=== PATIENT | male | born 1990 | race Caucasian/White ===

== ENCOUNTER 2022-04-12 06:26 | Emergency (ER) | payer BC, SELFPAY ==
[2022-04-12 06:28] VITALS: BP 128/90; PULSE 75; RESP 18; TEMP 36.6; O2SAT 98; BMI 28.3
--- NOTE | 2022-04-12 06:50 | RAD_ITS ---
STUDY: X-RAY - LUMBAR SPINE REASON FOR EXAM: Male, 32 years old. Pain TECHNIQUE: 5 view(s) of the lumbar spine were obtained. COMPARISON: None FINDINGS: Normal lumbar lordosis. There is no substantial scoliosis. There is a normal alignment of the vertebrae. Normal vertebral bodies and endplates. Normal disc space heights. There is no demonstrated fracture. The soft tissue structures are unremarkable. RAD/L/S Spine Min 4 Views IMPRESSION: Normal x-ray examination of the lumbar spine. Electronically Signed: Alfredito Todd MD at 8:46 EST ,
[2022-04-12] MEDS: predniSONE 20 MG Tablet 40 MG PO (06:57)
[2022-04-12] MEDS: diazePAM 5 MG Tablet PO (06:58)
[2022-04-12] MEDS: oxyCODONE 5 MG Tablet 10 MG PO (06:58)
--- NOTE | 2022-04-12 07:26 | EX.ED.DYSGE1 ---
HPI History of Present Illness Chief Complaint: Back Narrative Narrative: Patient is a 32-year-old male with no reported past medical history. He states that he developed back pain on Friday. He states he does lift heavy objects at work and he did so on Friday but this is not out of the ordinary and he denies pain occurring suddenly with his lifting motion. He states a few hours later however he noticed some pain in the low back slightly greater on the right and as time passed he had increased pain with difficulty moving. He states trying to sit up or lift his leg causes increased pain. He denies any hematuria or dysuria. He denies any loss of bowel or bladder control or IV drug use. He states has been trying [id number] medications with no symptom improvement and secondary to this comes in for evaluation [facility] Medical History no medical history no medical history Home Medications diazepam 5 mg tablet (Valium) 5 mg PO TID PRN muscle spasm 5 days #15 tabs 04/12/22 [Rx Last Taken Unknown] oxycodone-acetaminophen 5 mg-325 mg tablet (Endocet) 1 tab PO Q6H PRN pain 3 days #12 tabs 04/12/22 [Rx Last Taken Unknown] prednisone 20 mg tablet 40 mg PO DAILY 5 days #10 tabs 04/12/22 [Rx Last Taken Unknown] Allergy/AdvReac Type Severity Reaction Status Date / Time No Known Allergies Allergy Verified 04/12/22 06:32 Social History Smoking Status: Light Smoker (<10/day) [facility] ED Constitutional Constitutional ED: Denies chills or fever(s) ENT ENT ED: Denies sore throat Cardiovascular Cardiovascular: Denies chest pain Respiratory/Chest Respiratory/Chest: Denies cough or dyspnea Gastrointestinal Gastrointestinal: Denies abdominal pain, diarrhea, nausea or vomiting Genitourinary Genitourinary ED: Denies dysuria or hematuria Musculoskeletal Musculoskeletal: Reports back pain Integumentary Denies rash Neurologic Neurologic: Denies headache(s) or paresthesias Hematologic/Lymphatic Hematologic/Lymphatic: Denies easy bleeding or easy bruising EXAM Physical Exam Const Vital Signs: 04/12/22 06:28 Temperature 97.9 F Temperature Source Temporal Pulse Rate 75 Respiratory Rate 18 Blood Pressure 128/90 H Blood Pressure Mean 102 Pulse Ox 98 Oxygen Delivery Method Room Air Positive well nourished and well developed General Appearance ED: well developed Eyes PERRL and EOMs intact bilaterally Neck supple Resp normal respiratory effort and clear to auscultation bilaterally Cardio regular rate and regular rhythm GI normal to inspection, nondistended, normoactive bowel sounds, non-tender, non-distended and no masses Auscultation: normoactive bowel sounds Palpation: soft Back/Spine Back/Spine Narrative: No bony deformity or step-off of the thoracic or lumbar spine but there is mild pain with palpation along the lower lumbar upper sacral region with increased pain along the left sacroiliac joint. There is also bilateral paralumbar tension and spasm noted slightly greater on the left. Pain worsens with extension and rotation of the back. No saddle anesthesia. Negative straight leg raise. No clonus or Babinski. Patellar reflexes are plus 2 out of 4 bilaterally are equal and symmetric. There is a positive Sergo sign on left. Extremity normal to inspection Neuro oriented x3, CN's II-XII intact bilaterally and no sensory deficits noted Sensorium / Orientation: alert Psych mental status grossly normal Skin no rashes or lesions noted Skin Narrative: No overlying soft tissue changes to suggest trauma or infection MDM MDM MDM Narrative Medical decision making narrative: Patient presented to the ER with stable vitals and had no history of physical exam findings concerning for cauda equina or epidural abscess. As he reported pain after lifting there is concern he has had a spondylolisthesis or possible compression fracture or even nerve impingement. However his exam does not show saddle anesthesia asymmetric reflexes or clonus and straight leg raise is negative going against this. At this time I feel he has sacroiliac joint dysfunction along with lumbosacral strain and spasm. I do not feel there is need for blood work as my concern for infectious process is low and clinical exam does not correlate with kidney stone. An x-ray was obtained because of the concern for spinal thesis or compression fracture but revealed no acute finding. Patient was medicated with oral prednisone oxycodone and Valium. On reevaluation he has had improvement of symptoms and remains neurovascular intact. Therefore he was prescribed these meds for further symptom control for the next few days and is otherwise safe for discharge Radiography Diagnostic Testing: X-ray of the lumbosacral spine as interpreted by the emergency medicine physician reveals no acute compression fracture or spondylolisthesis Discharge Plan Triage Chief Complaint: Back ED Provider: Liam Humphries Dx/Rx/DC Orders Clinical Impression: Sacroiliac joint dysfunction, Acute lumbosacral myofascial strain Instructions: ED Back Spasm, No Trauma, ED Back Sprain/Strain Prescriptions: New oxycodone-acetaminophen [Endocet] 5-325 mg tablet 1 tab PO Q6H PRN (Reason: pain) 3 Days Qty: 12 0RF diazepam [Valium] 5 mg tablet 5 mg PO TID PRN (Reason: muscle spasm) 5 Days Qty: 15 0RF prednisone 20 mg tablet 40 mg PO DAILY 5 Days Qty: 10 0RF Stand Alone Forms: ED Work / School Excuse Primary Care Provider: Care Physician,No Primary Referrals: Ambar Jacobson MD [Med Staff - Press Set Up] - Care Physician,No Primary [Primary Care Provider] - Activity Restrictions/Additional Instructions: Please continue to stretch and heat your back to help reduce pain and speed healing. Take your medication as directed to help control symptoms and return to the ER should you have any further concerns. Disposition Disposition: Home, Self Care
[2022-04-12 08:10] VITALS: PULSE 76; RESP 16; O2SAT 98
== END 2022-04-12 08:11 | disposition home or self-care (01) ==
PROVIDERS: Emergency Provider Emergency Medicine; Visit Provider Emergency Medicine
DX: S39.012A Strain of muscle, fascia and tendon of lower back, initial encounter (principal); F17.200 Nicotine dependence, unspecified, uncomplicated; Z79.52 Long term (current) use of systemic steroids; M53.3 Sacrococcygeal disorders, not elsewhere classified; X50.0XXA Overexertion from strenuous movement or load, initial encounter
CPT/HCPCS: 72110; 99283